=== PATIENT | male | born 1960 | race Caucasian/White ===

== ENCOUNTER 2017-04-14 22:58 | Emergency (ER) | payer OTHER ==
[2017-04-14 23:28] LABS: #Basophils 0.1 thou/uL (0.0-0.2); #Eosinphils 0.4 thou/uL (0.0-0.7); #Lymphocytes 3.1 thou/uL (1.20-3.40); #Monocytes 0.8 thou/uL (0.11-0.59); %Basophils 1.2 % (0.0-1.0); %Eosinophils 4.5 % (0.0-10.0); %Lymphocytes 33.2 % (21.0-51.0); %Monocytes 8.2 % (0.0-10.0); Hematocrit 54.7 % (42.0-52.0); Mean Platelet Volume 7.4 fL (7.4-10.4); Red Blood Cell (RBC) Count 5.39 mill/uL (4.70-6.10); White Blood Cell (WBC) Count 9.4 thou/uL (4.8-10.8)
[2017-04-14 23:54] LABS: Bilirubin Negative (Negative); Blood, Urine Negative (Negative); Glucose, Urine (Dipstick) Negative (Negative); Ketone, Urine Negative (Negative); Nitrite Negative (Negative); Protein, Urine (Dipstick) Negative (Neg-Trace)
[2017-04-15 00:03] LABS: ALT (SGPT) 39 U/L (8-55); AST (SGOT) 43 U/L (5-34); Alkaline Phosphatase 86 U/L (40-150); Anion Gap 19 mmol/L (10-20); BUN (Urea Nitrogen) 14 mg/dL (8.4-25.7); Bilirubin, Total 0.4 mg/dL (0.2-1.2); Calc. Creatinine Clearance 0 mL/min (70-130); Calcium 9.4 mg/dL (7.8-10.44); Carbon Dioxide 22 mmol/L (22-29); Chloride 101 mmol/L (98-107); Estimated GFR-MDRD 61; Lipase 36 U/L (8-78)
[2017-04-15] MEDS ORDERED: Ketorolac Tromethamine 30 MG/ML VIAL ONE (00:21)
[2017-04-15] MEDS ORDERED: Ondansetron HCl/PF 4 MG/2 ML Vial ONE (01:47)
--- NOTE | 2017-04-15 08:50 | CT ---
PRELIMINARY REPORT/[facility]/EMERGENCY AFTER HOURS PROCEDURE: EXAM: CT Abdomen and Pelvis Without Intravenous Contrast EXAM DATE/TIME: 04/15/2017 12:31 AM CLINICAL HISTORY: Pain; Abdominal pain; Generalized; Patient HX: R/O stone TECHNIQUE: Axial computed tomography images of the abdomen and pelvis without intravenous contrast. Coronal reformatted images were created and reviewed. COMPARISON: No relevant prior studies available. FINDINGS: Lower thorax: Mild bibasilar emphysema. ABDOMEN: Liver: The liver is enlarged. Gallbladder and bile ducts: The gallbladder is contracted. No calcified stones. No ductal dilation. Pancreas: Unremarkable. No ductal dilation. Spleen: Unremarkable. No splenomegaly. Adrenals: Unremarkable. No mass. Kidneys and ureters: Bilateral renal calculi. No hydronephrosis. Subcentimeter right renal cortical hypodensity which is too small to characterize. Stomach and bowel: Colonic diverticula without adjacent inflammatory change. No obstruction. No muco kareem thickening. Appendix: Normal appendix. No findings to suggest acute appendicitis. PELVIS: Bladder: Unremarkable. No stones. Reproductive: Unremarkable as visualized. ABDOMEN and PELVIS: Intraperitoneal space: Unremarkable. No free air. No significant fluid collection. Bones/joints: Multilevel spondylosis. No acute fracture. No dislocation. Soft tissues: Unremarkable. Vasculature: Aortoiliac atherosclerosis. No abdominal aortic aneurysm. Lymph nodes: Unremarkable. No enlarged lymph nodes. IMPRESSION: 1. Bilateral nonobstructive renal calculi. 2. Other findings as above. ---We are pleased to participate in the care of your patient.--- Thank you for allowing us to participate in the care of your patient. Dictated and Authenticated by: Nina Thorne MD 04/15/2017 12:50 AM Central Time ([place] \T\ [place]) FINAL REPORT CT ABDOMEN AND PELVIS WITHOUT CONTRAST STONE PROTOCOL: HISTORY: Right lower abdominal pain. Right flank pain. History of kidney stones. COMPARISON: None available. FINDINGS: Lung bases are clear. No pericardial effusion. Nonobstructing bilateral renal calculi, largest in the superior pole left kidney. No hydroureteral nephrosis. No calculus within the ureters nor the urinary bladder. No dilated loops of large or small bowel. Appendix is visualized and is normal. Extensive atherosclerotic plaque throughout the aorta. No other acute abnormality. IMPRESSION: Nonobstructed bilateral renal calculi. No evidence of a recently passed stone. CODE: QA POS: OFF
--- NOTE | 2017-04-15 09:01 | ULT ---
PRELIMINARY REPORT/[facility]/EMERGENCY AFTER HOURS PROCEDURE: EXAM: US Abdomen Limited, Right Upper Quadrant CLINICAL HISTORY: 56 years old, male; Pain; Other: Ruq TECHNIQUE: Real-time ultrasound of the right upper quadrant with image documentation. COMPARISON: CT Stone Protocol 04/15/2017 12:31:08 AM FINDINGS: Liver: Unremarkable. No mass. No intrahepatic bile duct dilation. Gallbladder: Contracted with small gallstones. No wall thickening or pericholecystic fluid. Positive sonographic Oconnor sign Common bile duct: Unremarkable as visualized. No stones. No dilation. Pancreas: Not well visualized. Right kidney: Calculi noted measuring up to 8 mm Simple cyst No solid mass. No hydronephrosis. IMPRESSION: Gallstones and positive sonographic Oconnor's sign Right renal calculi without hydronephrosis Thank you for allowing us to participate in the care of your patient. Dictated and Authenticated by: Willam Lieberman MD 04/15/2017 3:36 AM Central Time ([place] \T\ [place]) FINAL REPORT EMERGENT AFTER HOURS RIGHT UPPER QUADRANT ULTRASOUND: DATE: 04/15/17. HISTORY: Right upper quadrant abdominal pain. IMPRESSION: 1. The gallbladder is decompressed with cholelithiasis and multiple gallbladder calculi present. T he gallbladder wall is not particularly thickened. Resident Care Associate does note sonographic positive Oconnor's sign. In the correct clinical scenario, findings could be related to cholecystitis. 2. The common duct is normal in caliber measuring 0.5 cm in diameter. 3. Echogenic foci within the right kidney suspicious for renal calculi which was seen on prior CT a bdomen also on 04/15/17. No hydronephrosis is present. 4. Tiny right renal cyst. 5. Findings are in agreement with the preliminary report by [facility]. POS: [facility]
== END 2017-04-15 04:42 | disposition home or self-care (01) ==
LOC: ERS 22:58
DX: K80.20 Calculus of gallbladder without cholecystitis without obstruction (principal); K21.9 Gastro-esophageal reflux disease without esophagitis; I10 Essential (primary) hypertension; F17.220 Nicotine dependence, chewing tobacco, uncomplicated; Z79.899 Other long term (current) drug therapy
CPT/HCPCS: 74176; 76705; 80053; 81003; 83690; 85025; 96361; 96374; 96375; J1170; J1885; J2270; J2405

== ENCOUNTER 2025-01-09 11:21 | Emergency (ER) | payer OTHER ==
[2025-01-09] MEDS ORDERED: Sodium Chloride 0.9% 100 ML ONE (11:58)
[2025-01-09] MEDS ORDERED: cefTRIAXone (ROCEPHIN) 1 GM VIAL ONE (11:58)
[2025-01-09] MEDS ORDERED: Vancomycin 1 GM/200 ML (FROZEN) BAG ONE (11:58)
[2025-01-09] MEDS ORDERED: Morphine 4 MG/ML VIAL ONE (11:58)
[2025-01-09 12:26] LABS: #Basophils 0.05 10x3/uL (0.0-0.2); #Eosinophils 0.22 10x3/uL (0.0-0.7); #Monocytes 1.33 10x3/uL (0.11-0.59); #Neutrophils 8.51 10x3/uL (1.40-6.50); %Basophils 0.4 % (0.0-1.0); %Eosinophils 1.9 % (0.0-10.0); %Lymphocytes 11.2 % (21.0-51.0); %Monocytes 11.6 % (0.0-10.0); %Neutrophils 74.3 % (42.0-75.0); Hematocrit 40.9 % (42.0-52.0); Hemoglobin 13.6 g/dL (14.0-18.0); Mean Corpuscular HGB CONC 33.3 g/dL (32.0-36.0); Mean Corpuscular Hemoglobin 31.9 pg (27.0-31.0); Mean Platelet Volume 10.1 fL (7.4-10.4); Platelet Count 218 10x3/uL (130-400); Red Blood Cell (RBC) Count 4.26 mill/uL (4.70-6.10); White Blood Cell (WBC) Count 11.47 10x3/uL (4.8-10.8)
[2025-01-09 12:29] LABS: Actual Bicarbonate (HCO3v) 25.8 mEq/L (22-28); Base Excess 0.3 mEq/L (-2.0 to +3.0); Calcium, Ionized (venous) 1.05 mmol/L (1.16-1.32); Chloride (VBG) 101 mmol/L (98-106); Hematocrit-VBG 42 % (42.0-52.0); Hemoglobin (Hb) 14.4 g/dL (13.1-17.2); Potassium (VBG) 4.26 mmol/L (3.70-5.30); Sodium 137 mmol/L (133-146); pH (venous) 7.378 (7.32-7.43)
[2025-01-09 12:44] LABS: ALT (SGPT) 9 U/L (Less than 45); AST (SGOT) 34 U/L (11-34); Albumin 3.6 g/dL (3.1-4.5); Alkaline Phosphatase 64 U/L (40-110); Anion Gap 13 mmol/L (10-20); BUN (Urea Nitrogen) 18 mg/dL (8.4-25.7); Calc. Creatinine Clearance 0 mL/min (70-130); Calcium 8.7 mg/dL (7.8-10.44); Carbon Dioxide 23 mmol/L (23-31); Chloride 103 mmol/L (98-107); Estimated GFR 80; Globulin 3.3 g/dL (2.4-3.5); Glucose 96 mg/dL (80-115); Potassium 4.1 mmol/L (3.5-5.1); Protein, Total 6.9 g/dL (5.8-8.1); Sodium 135 mmol/L (136-145)
[2025-01-09] MEDS ORDERED: Iopamidol-370 76% 500 ML MDV (1 ML CHARGE) ONE (13:09)
[2025-01-09 13:25] LABS: Bacteria/HPF None Seen HPF (None Seen); Bilirubin Negative (Negative); Blood, Urine Negative (Negative); CAUTI Indications for Culture Fever or rigors; Clarity Clear (Clear); Glucose, Urine (Dipstick) Normal (Negative); Ketone, Urine Negative (Negative); Leukocyte Negative Leu/uL (Negative); Nitrite Negative (Negative); Protein, Urine (Dipstick) Negative (Neg-Trace); RBC/HPF None Seen HPF (0-3); Squamous Epithelial None Seen HPF (0-3); Urobilinogen Normal mg/dL (Less than 2); WBC/HPF 0-3 HPF (0-3)
[2025-01-09 13:34] LABS: Urine Culture Reflex No No
[2025-01-09] MEDS ORDERED: Morphine 2 MG/ML VIAL ONE (14:05)
== END 2025-01-09 18:33 | disposition home or self-care (01) ==
LOC: ERS 11:21
DX: T81.49XA Infection following a procedure, other surgical site, initial encounter (principal); M25.561 Pain in right knee; I10 Essential (primary) hypertension; K21.9 Gastro-esophageal reflux disease without esophagitis; Z79.899 Other long term (current) drug therapy; Z79.82 Long term (current) use of aspirin
CPT/HCPCS: 36415; 80053; 81001; 82805; 83605; 85025; 87040; 87086; 94760; 96365; 96374; 96375; 96376; J0696; J2270; J2272; J3370; Q9967